=== PATIENT | male | born 1960 | race Caucasian/White ===

== ENCOUNTER 2023-03-26 11:39 | Outpatient (CLI) | payer OTHER, SELFPAY | END 2023-03-26 11:40 | disposition home or self-care (01) | LOC: NFLDREF 11:41 | PROVIDERS: PCP Family Medicine; Visit Provider Family Medicine | DX: E10.9 Type 1 diabetes mellitus without complications (principal); E78.5 Hyperlipidemia, unspecified; I10 Essential (primary) hypertension | CPT/HCPCS: 80048; 80061; 84153; 84460 ==

== ENCOUNTER 2024-03-23 09:31 | Outpatient (CLI) | payer OTHER, SELFPAY | END 2024-03-23 09:32 | disposition home or self-care (01) | PROVIDERS: PCP Family Medicine; Visit Provider Family Medicine | DX: E78.2 Mixed hyperlipidemia (principal); I10 Essential (primary) hypertension; E10.65 Type 1 diabetes mellitus with hyperglycemia | CPT/HCPCS: 80048; 80061; 84460 ==